=== PATIENT | female | born 1960 ===

== ENCOUNTER 2019-09-28 10:04 | Emergency (ER) | payer BC, SELFPAY ==
[2019-09-28 10:16] VITALS: BP 159/85; PULSE 71; RESP 20; TEMP 37.7; O2SAT 98
--- NOTE | 2019-09-28 10:20 | ED.GENADULT ---
HPI - General Adult General Chief complaint: Ear Stated complaint: verdigo/ear pressure Time Seen by Provider: 09/28/19 10:20 Source: patient and RN notes reviewed Mode of arrival: ambulatory Limitations: no limitations History of Present Illness HPI narrative: 58-year-old female presents with complaints of dizziness that has been intermittent for the past 8 days. Symptoms initially lasted for 3 days and consisted of spinning sensation with increase dizziness with turning of head from side to side. Symptoms increased over the last 24 hours with pressure in ears, feeling off balance, and return of dizziness. Claritin and Xanax without relief. Exacerbating factors consist of changing position too fast turning head from side to side too fast. Relieving factors is sitting still. Denies ear pain, ear itching, ear trauma, trauma to head, syncopal episodes, altered vision, altered speech, confusion, or seizure activity. Denies headache, numbness or tingling in extremities. Denies chest pain or dyspnea. Denies URI symptoms, fever, or chills. Tolerating p.o. intake well. Remains active. Some parts of this dictation were generated by voice recognition software and may contain typographical and/or grammatical inaccuracies. Related Data Home Medications Medication Instructions Recorded Confirmed alprazolam 0.5 mg PO TID PRN 09/28/19 09/28/19 aspirin [Adult Low Dose Aspirin] 81 mg PO DAILY 09/28/19 09/28/19 cholecalciferol (vitamin D3) 4,000 unit PO DAILY 09/28/19 09/28/19 [Vitamin D3] rosuvastatin 10 mg PO DAILY 09/28/19 09/28/19 Allergies Allergy/AdvReac Type Severity Reaction Status Date / Time No Known Allergies Allergy Verified 09/28/19 10:22 Review of Systems Review of Systems: Narrative: CONSTITUTIONAL: Denies fever, chills, sweats. EYES: Denies visual changes, redness, discharge. ENT: Denies rhinorrhea, congestion, sore throat, otalgia. Complains of bilateral ear pressure. CARDIOVASCULAR: Denies chest pain, palpitations, edema. RESPIRATORY: Denies dyspnea, wheezing, cough. GASTROINTESTINAL: Denies abdominal pain, nausea, vomiting, diarrhea. GENITOURINARY: Denies dysuria, hematuria, abnormal discharge SKIN: Denies lesions, itching, drainage. MUSCULOSKELETAL: Denies acute back pain, joint pain, or myalgia. NEUROLOGIC: Denies numbness or focal weakness. Complains of dizziness, feeling off balance. PSYCHIATRIC: Denies anxiety or depression. All other systems reviewed are negative, except as documented in HPI and below. [facility] Past Medical History Medical History (Updated 09/28/19 @ 11:00 by RIAZ Navarro) Anxiety Hypercholesteremia Surgical History Surgical History (Updated 09/28/19 @ 10:32 by RIAZ Navarro) History of carpal tunnel surgery Right wrist Family History Family History (Updated 09/28/19 @ 10:32 by RIAZ Navarro) Father Heart disease Mother Hypertension Social History Social History (Updated 09/28/19 @ 10:33 by RIAZ Navarro) Smoking status: Never smoker Second hand tobacco smoke exposure: Yes Alcohol intake: never Substance use: never Living arrangements: with family Occupation/Education: occupation 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 There is no relevant family history pertinent to the presenting complaint. Exam Narrative: Exam Narrative: GENERAL: This is a well-nourished, well-developed patient, in no apparent distress. Talks in full sentences and ambulates with steady gait without dyspnea. HEAD: normocephalic, atraumatic. EYES: PERRL. Sclera clear/white. Vision is grossly intact. EARS: External ears normal, auditory canals clear and without drainage, TMs normal without perforation. Hearing grossly intact. NOSE: External nose normal with no
[2019-09-28] MEDS: MECLIZINE HCL 25 MG TABLET PO (10:33)
[2019-09-28 10:45] VITALS: BP 148/78; PULSE 68
[2019-09-28 10:46] VITALS: BP 143/77; PULSE 80
[2019-09-28 10:47] VITALS: BP 138/94; PULSE 92
[2019-09-28 10:54] LABS: Glucose Point of Care 99 (65-105)
--- NOTE | 2019-09-28 10:54 | ECG_ITS ---
Measurements Intervals [place] Rate: 64 P: 34 [place]: 161 QRS: -3 QRSD: 93 T: 12 QT: 415 QTc: 429 Interpretive Statements SINUS RHYTHM INCOMPLETE RIGHT BUNDLE BRANCH BLOCK MINIMAL Q WAVES- LATERAL LEADS BORDERLINE T WAVE ABNORMALITY- INFERIOR LEADS BASELINE ARTIFACT- V6 BORDERLINE ECG Electronically Signed On 09-28-2019 14:27:34 ULTRASOUND SPEC by Dl Mcnulty D.O.
== END 2019-09-28 11:10 | disposition home or self-care (01) ==
PROVIDERS: Emergency Provider Nurse Practitioner Family; PCP Nurse Practitioner Adult Health
DX: H81.13 Benign paroxysmal vertigo, bilateral (principal); F41.9 Anxiety disorder, unspecified; E78.00 Pure hypercholesterolemia, unspecified; I45.10 Unspecified right bundle-branch block
CPT/HCPCS: 82948; 93005; 99213; A9270; G0463